=== PATIENT | male | born 1985 | race Caucasian/White ===

== ENCOUNTER 2018-03-16 14:28 | Emergency (ER) | payer SELFPAY ==
[2018-03-16 14:59] VITALS: BP 131/90
--- NOTE | 2018-03-16 15:05 | ED Physician Documentation ---
PD HPI UPPER EXT INJURY - Stated complaint Stated Complaint: RIGHT PINKY LAC - Chief complaint Chief Complaint: Laceration - History obtained from History obtained from: Patient - History of Present Illness Location: Other (Right-handed gentleman who is up-to-date on tetanus was assembling a barbecue grill today and cut the dorsum of the right pinky finger on a sharp edge.) Review of Systems Constitutional: reports: Reviewed and negative Cardiac: reports: Reviewed and negative Respiratory: reports: Reviewed and negative PD PAST MEDICAL HISTORY - Past Medical History Past Medical History: No - Past Surgical History Past Surgical History: Yes Ortho: Other - Present Medications Home Medications: Ambulatory Orders Medication Instructions Recorded Confirmed No Known Home Medications [No 03/16/18 03/16/18 Known Home Medications] - Allergies Allergies/Adverse Reactions: Allergies Allergy/AdvReac Type Severity Reaction Status Date / Time amoxicillin Allergy Unknown Verified 03/16/18 14:50 - Social History Does the pt smoke?: Yes Smoking Status: Current every day smoker Does the pt drink ETOH?: Yes Does the pt have substance abuse?: No - Immunizations Immunizations are current?: Yes PD ED PE NORMAL - Vitals Vital signs reviewed: Yes - General General: Alert and oriented X 3, No acute distress - Extremities Extremities: Other (There is a very shallow 1 cm laceration over the dorsal PIP of the right fifth finger, too shallow to affect deeper structures.) - Neuro Neuro: Alert and oriented X 3, Normal speech Results - Vitals Vitals: Vital Signs - 24 hr 03/16/18 14:32 Temperature 36.6 C Heart Rate 70 Respiratory 16 Rate Blood Pressure 131/90 H Oxygen O2 Source Room air Procedures - Laceration (location) R 5th finger Length in cm: 1 Wound type: Linear Neurovascular status: Sensory intact, Motor intact Wound Preparation: Irrigated copiously NS Skin layer closure: Dermabond Other: Tetanus UTD Complexity: Simple Departure - Departure Disposition: 01 Home, Self Care Condition: Good Record reviewed to determine appropriate education?: Yes Instructions: ED Laceration Ext Skin Glue Comments: Your blood pressure was elevated today on check into the emergency department. This does not mean that you have hypertension, it is a common phenomenon to come to the emergency department and have elevated blood pressure. I recommend that you see your primary care physician within the week to have it rechecked when you are feeling better.
== END 2018-03-16 15:15 | disposition home or self-care (01) ==
LOC: ED 14:28
DX: S61.216A Laceration without foreign body of right little finger without damage to nail, initial encounter (principal); W45.8XXA Other foreign body or object entering through skin, initial encounter; R03.0 Elevated blood-pressure reading, without diagnosis of hypertension; F17.200 Nicotine dependence, unspecified, uncomplicated
CPT/HCPCS: 12001; 99282; 99283

== ENCOUNTER 2020-02-10 08:00 | Outpatient (CLI) | payer BC ==
--- NOTE | 2020-02-10 17:10 | XRAY Report ---
Reason: DYSPNEA Procedure Date: 02/10/2020 Accession Number: [id number] / [id number] Procedure: WCP - Chest 2 View X-Ray CPT Code: 38193 Final Report FULL RESULT: EXAM: CHEST RADIOGRAPHY EXAM DATE: 02/10/2020 09:53 AM. CLINICAL HISTORY: DYSPNEA. COMPARISON: None. TECHNIQUE: PA x2, lateral views. FINDINGS: Lungs/Pleura: No focal opacities evident. No interstitial abnormality or pulmonary vascular congestion. No pleural effusion. No pneumothorax. Normal volumes. Mediastinum: Heart and mediastinal contours are unremarkable. Other: None. IMPRESSION: Normal 2-view chest radiography. RADIA
== END 2020-02-10 23:59 | disposition home or self-care (01) ==
LOC: DI.WCP 08:00
PROVIDERS: ATTEND Family Medicine
DX: R06.00 Dyspnea, unspecified (principal)
CPT/HCPCS: 71046

== ENCOUNTER 2021-05-16 08:00 | Outpatient (CLI) | payer BC, MEDICAID ==
--- NOTE | 2021-05-17 11:03 | XRAY Report ---
PROCEDURE: Chest 2 View X-Ray INDICATIONS: BILATERAL PNUEMONIA TECHNIQUE: 2 view(s) of the chest. COMPARISON: Similar studies 02/10/2020. FINDINGS: Surgical changes and devices: None. Lungs and pleura: No pleural effusions or pneumothorax. Lungs are clear. Mediastinum: Mediastinal contours are normal. Heart size is normal. Bones and chest wall: No suspicious bony abnormalities. Soft tissues appear unremarkable. IMPRESSION: Normal for age, source of current symptoms is not seen. Reviewed by: Morteza Sauceda MD on 05/17/2021 11:02 AM PDT Approved by: Morteza Sauceda MD on 05/17/2021 11:02 AM PDT Station ID: [id number]
== END 2021-05-16 23:59 | disposition home or self-care (01) ==
LOC: DI.S 08:00
PROVIDERS: ATTEND Emergency Medicine
DX: J18.9 Pneumonia, unspecified organism (principal)

== ENCOUNTER 2021-06-06 16:30 | Outpatient (CLI) | payer MEDICAID | END 2021-06-06 23:59 | disposition home or self-care (01) | LOC: LAB.R 16:30 | PROVIDERS: ATTEND Physician Assistant Medical | DX: R05 Cough (principal); Z20.822 Contact with and (suspected) exposure to COVID-19 ==

== ENCOUNTER 2021-06-30 13:17 | Outpatient (CLI) | payer MEDICAID ==
[2021-06-30] MEDS ORDERED: ALBUTEROL 1 PUFF INH STA (17:04)
== END 2021-06-30 13:18 | disposition home or self-care (01) ==
LOC: RT 13:17
PROVIDERS: ATTEND Registered Nurse
DX: R05 Cough (principal); R06.00 Dyspnea, unspecified
CPT/HCPCS: 94060; 94729

== ENCOUNTER 2021-08-25 07:10 | Outpatient (CLI) | payer MEDICAID | END 2021-08-25 23:59 | disposition home or self-care (01) | LOC: LAB 07:10 | PROVIDERS: ATTEND Physician Assistant Medical | DX: R05.9 Cough, unspecified (principal); Z20.822 Contact with and (suspected) exposure to COVID-19 ==

== ENCOUNTER 2021-08-25 11:57 | Outpatient (CLI) | payer MEDICAID ==
--- NOTE | 2021-08-25 13:35 | XRAY Report ---
PROCEDURE: Sinus Complete INDICATIONS: COUGH TECHNIQUE: 4 views of the sinuses were acquired. COMPARISON: None FINDINGS: Sinuses: The visualized sinuses demonstrate no air-fluid levels or mucosal thickening. The visualiz ed mastoids also appear clear. Bones: No suspicious bony lesions. Nasal septum is midline. There is a compression sideplate repai r of the left orbital floor with additional maxillary medial side plates as well. IMPRESSION: Paranasal sinuses are clear. Maxillofacial repair hardware intact Reviewed by: Hemanth Murray MD on 08/25/2021 12:34 PM AKROSEMARIE Approved by: Hemanth Murray MD on 08/25/2021 12:34 PM AKDT Station ID: [id number]
== END 2021-08-25 11:58 ==
LOC: DI.S 11:57
PROVIDERS: ATTEND Physician Assistant Medical
DX: R05.9 Cough, unspecified (principal)

== ENCOUNTER 2021-08-26 15:23 | Emergency (ER) | payer MEDICAID ==
--- NOTE | 2021-08-26 16:08 | XRAY Report ---
PROCEDURE: Chest 1 View X-Ray INDICATIONS: chest pain TECHNIQUE: One view of the chest was acquired. COMPARISON: Chest x-ray 05/16/2021 FINDINGS: Surgical changes and devices: None. Lungs and pleura: No pleural effusions or pneumothorax. Lungs are clear. Mediastinum: Mediastinal contours appear normal. Heart size is normal. Bones and chest wall: No suspicious bony lesions. Overlying soft tissues appear unremarkable. IMPRESSION: No acute pulmonary process. Reviewed by: Holly Rawls MD on 08/26/2021 4:07 PM PDT Approved by: Holly Rawls MD on 08/26/2021 4:07 PM PDT Station ID: [id number]
[2021-08-26] MEDS ORDERED: ALBUTEROL NEB 2.5 MG/3 ML INH STA (17:00)
[2021-08-26] MEDS ORDERED: IPRATROPIUM 0.2 MG/ML NEB INH STA (17:01)
--- NOTE | 2021-08-26 17:02 | ED Physician Documentation ---
History of Present Illness - Stated complaint Stated Complaint: SOA,COUGH - Chief complaint Chief Complaint: Resp - Additonal information Additional information: 36-year-old male presents emergency department for evaluation of worsening cough that began 4 months ago. He states he has been seen a number of times at urgent care and walk-in clinic. He has had multiple courses of antibiotics has been told that he has bad allergies. He is taking montelukast and Zyrtec daily. He is also doing a daily Flonase nasal spray. He is using albuterol daily and is now using it every 4-6 hours. He is having severe coughing spells. Typically they are dry but most recently this morning he brought up a lot of blood-tinged yellow sputum. He feels persistently short of air. He did have spirometry completed in June that was not consistent with reactive airway disease yet he remains wheezy. He has been screened for COVID-19 multiple times most recently yesterday and the pending's green is not yet resulted. However he is fully vaccinated for COVID- 19. Review of Systems Constitutional: denies: Fever, Chills Eyes: reports: Reviewed and negative Ears: reports: Reviewed and negative Nose: reports: Rhinorrhea / runny nose, Congestion Throat: reports: Sore throat Cardiac: denies: Chest pain / pressure, Palpitations, Pedal edema, Calf pain Respiratory: reports: Dyspnea, Cough, Hemoptysis, Wheezing GI: reports: Reviewed and negative : reports: Reviewed and negative PD PAST MEDICAL HISTORY - Past Surgical History Past Surgical History: Yes Ortho: Other - Present Medications Home Medications: Ambulatory Orders Medication Instructions Recorded Confirmed Azithromycin [Zithromax] 0 mg PO DAILY #6 tablet 08/26/21 predniSONE [Deltasone] 40 mg PO DAILY 5 Days #10 tablet 08/26/21 - Allergies Allergies/Adverse Reactions: Allergies Allergy/AdvReac Type Severity Reaction Status Date / Time amoxicillin Allergy Unknown Verified 08/26/21 15:28 - Social History Does the pt smoke?: Yes Smoking Status: Current every day smoker Does the pt drink ETOH?: Yes Does the pt have substance abuse?: No - Immunizations Immunizations are current?: Yes PD ED PE EXPANDED - General General: Alert, No acute distress - Neck Neck: Supple w/out meningeal sx. No: Adenopathy - Cardiac Cardiac: Regular Rate, Radial strong equal, Cap refill < 2 sec - Respiratory Respiratory: Labored, Other (Global generalized wheeze. Mild tachypnea. No retractions.) - Abdomen Abdomen: Normal Bowel sounds. No: Tender to palpation - Neuro Neuro: Alert and Oriented X 3, CNII-XII intact - GCS Eye Opening: Spontaneous Motor: Obeys Commands Verbal: Oriented Total: 15 Results - Vitals Vitals: Vital Signs - 24 hr 08/26/21 08/26/21 08/26/21 15:29 17:15 17:32 Temperature 37.1 C 36.8 C Heart Rate 88 85 83 Respiratory 26 H 20 18 Rate Blood Pressure 107/71 117/65 O2 Saturation 98 98 Oxygen O2 Source Room air - Labs Labs: Laboratory Tests 08/26/21 08/26/21 17:15 17:15 WBC 11.7 H RBC 5.40 Hgb 15.8 Hct 47.2 MCV 87.4 MCH 29.3 MCHC 33.5 RDW 12.8 Plt Count 365 MPV 9.1 Neut # (Auto) 9.3 H Lymph # (Auto) 1.0 L [place] # (Auto) 0.7 Eos # (Auto) 0.7 Baso # (Auto) 0.1 Absolute Nucleated RBC 0.00 Nucleated RBC % 0.0 Sodium 140 Potassium 4.1 Chloride 103 Carbon Dioxide 28 Anion Gap 9.0 BUN 21 H Creatinine 1.1 Estimated GFR (MDRD) 76 L Glucose 100 Calcium 9.7 Total Bilirubin 0.8 AST 19 ALT 24 Alkaline Phosphatase 74 Total Protein 7.9 Albumin 4.7 Globulin 3.2 Albumin/Globulin Ratio 1.5 Lipase 34 - Rads (name of study) CT chest Radiology: Final report received (No pneumonia focal consolidation pleural effusion or finding of pulmonary embolus.) PD MEDICAL DECISION MAKING - ED course ED course: 36-year-old male presents the emergency department for evaluation of a cough that has been ongoing and persistent now for nearly 4 months. He has recurrent nasal congestion and drainage. But he also has a persistent cough that is now productive. He has been wheezy. He has had 2 courses of antibiotics and finished 1 course of steroids however that was a number of months ago. He had unremarkable spirometry in early June. He has been referred to an residential care facility manager but that is pending. He takes mom took last Zyrtec and a nasal steroid daily. He arrives here quite frustrated with the persistence of the cough that he feels is now inhibiting his ability to sleep at night and to be active during the day. - Screening chest x-ray is unremarkable for focal consolidation. He was not hypoxic or tachypneic however on cardiopulmonary auscultation he did have a persistent wheeze in all his lung weller. This markedly improved after receiving albuterol followed by Atrovent nebulization. I am ordering a home nebulizing machine To administer home bronchodilators to treat his reactive airway disease. I am also going to prescribe a 5-day burst of steroids as well as azithromycin for a suspected mild bronchitis. - Given duration of symptoms and reported hemoptysis a CT of the chest was completed with no adventitious findings of pneumonia or pulmonary embolus - I do feel that he would benefit from continued referral to meeting specialist. He should continue the montelukast, Flonase and Zyrtec. If the nebulizer that I am prescribing as well as the steroids and antibiotic do not improve symptoms he would likely also benefit from a referral to a garment looper. - We did discuss that often a cause of recurrent cough and wheeze can be silent acid reflux at night and I have advised him to avoid eating or drinking 2 to 3 hours before bedtime, consider taking a daily PPI and sleep upright on 2-3 pillows. - emergent return precautions otherwise discussed Departure - Departure Disposition: 01 Home, Self Care Clinical Impression: Reactive airway disease with wheezing Qualifiers: Asthma severity: moderate Asthma persistence: persistent Asthma complication type: uncomplicated Qualified Code(s): J45.40 - Moderate persistent asthma, uncomplicated Condition: Stable Record reviewed to determine appropriate education?: Yes Instructions: ED Reactive Airway Disease Follow-Up: Natasha Mims ARNP [Primary Care Provider] - Prescriptions: predniSONE [Deltasone] 40 mg PO DAILY 5 Days #10 tablet Azithromycin [Zithromax] 0 mg PO DAILY #6 tablet Comments: Tomi you were seen in the emergency department today for a cough that has persisted for more than 4 months. You were also noted to be extensively wheezy in all your lung weller. As we discussed at the bedside I suspected that you have reactive airway disease. This may be due to allergies or other environmental concerns. I do recommend that you continue to follow-up with the residential care facility manager that you have been referred to. The x-ray of your chest was normal today. We did do a CT of your chest that also showed no worrisome findings. Your labs were normal. We gave you albuterol and the nebulized form today and you did find that you had improved work of breathing. I have prescribed a nebulizer and medication that should be delivered to you through [facility]. Please call them at [phone] to help arrange this. I am prescribing an antibiotic called azithromycin that can help with mild bronchitis as well as acute asthma exacerbations. Please fill this at the [facility]. I would also like you to do another 5-day course of prednisone. Continue the montelukast, the Zyrtec as well as the nasal steroid. Another common cause of persistent cough and wheeze can be silent acid reflux at night. You may find some benefit from taking a daily acid reducing medication, avoiding eating or drinking 2 hours before bedtime as well as sleeping upright on 2-3 pillows. It is important that you discuss this ED visit with your primary care provider. If these measures are not improving your symptoms you may also benefit from referral to a garment looper or lung doctor.
[2021-08-26] MEDS ORDERED: IOVERSOL 320 100 ML VIAL IVP ONE ×2 (17:08→18:35)
[2021-08-26 17:29] LABS: BASOPHILS # (AUTO) 0.1 10^3/uL (0.0-0.1); BASOPHILS % (AUTO) 0.5 %; EOSINOPHILS # (AUTO) 0.7 10^3/uL (0.0-0.7); EOSINOPHILS % (AUTO) 6.3 %; HCT - HEMATOCRIT 47.2 % (42.0-52.0); HGB - HEMOGLOBIN 15.8 g/dL (14.0-18.0); LYMPHOCYTES % (AUTO) 8.2 %; MEAN CORPUSCULAR HEMOGLOBIN 29.3 pg (27.0-31.0); MEAN CORPUSCULAR HGB CONC 33.5 g/dL (32.0-36.0); MEAN CORPUSCULAR VOLUME 87.4 fL (80.0-94.0); MEAN PLATELET VOLUME 9.1 fL (7.4-11.4); MONOCYTES # (AUTO) 0.7 10^3/uL (0.0-1.0); NEUTROPHILS # (AUTO) 9.3 10^3/uL (1.5-6.6); NEUTROPHILS % (AUTO) 78.7 %; PLT - PLATELET COUNT 365 10^3/uL (130-450); RED CELL DISTRIBUTION WIDTH 12.8 % (12.0-15.0); WHITE BLOOD COUNT 11.7 x10^3/uL (4.8-10.8)
[2021-08-26 17:43] LABS: ALBUMIN 4.7 g/dL (3.2-5.5); ALBUMIN/GLOBULIN RATIO 1.5 (1.0-2.2); BILIRUBIN,TOTAL 0.8 mg/dL (0.2-1.0); CALCIUM 9.7 mg/dL (8.5-10.3); CREATININE 1.1 mg/dL (0.6-1.2); POTASSIUM 4.1 mmol/L (3.5-5.0); TOTAL PROTEIN 7.9 g/dL (6.7-8.2)
--- NOTE | 2021-08-26 18:53 | CT Report ---
PROCEDURE: ANGIO CHEST W/WO INDICATIONS: hemoptysis; cough X 4 months CONTRAST: IV CONTRAST: Optiray 320 ml: 80 PO CONTRAST: *NO PO CONTRAST TECHNIQUE: After the administration of intravenous contrast, 2 mm axial images were acquired from the pulmonary apices to the posterior costophrenic angles during the arterial phase. In addition, 1 mm lung kernel and 5 mm soft tissue kernel reconstructions were performed. 3-dimensional coronal oblique maximum int ensity projection (MIP) reformats, 8 mm axial MIP, and 5 mm coronal and sagittal MPR reformats were t hen performed through the thorax. For radiation dose reduction, the following was used: automated exp osure control, adjustment of mA and/or kV according to patient size. COMPARISON: Chest x-ray 08/26/2021 FINDINGS: Image quality: Excellent. Pulmonary arteries: Pulmonary arteries are normal in size, and demonstrate no intraluminal filling d efects to suggest central pulmonary embolism. Lungs and pleura: Lungs are clear. No pleural effusions or pneumothorax. Central and peripheral ai rways are patent. Mediastinum: Heart size is normal, without pericardial effusion. No mediastinal or hilar adenopathy . Thoracic aorta is normal in caliber and enhancement. Esophagus is normal in caliber, with mild hi atal hernia. Bones and chest wall: No suspicious bony lesions. Ribs and thoracic spine appear intact throughout. No axillary or supraclavicular adenopathy. The thyroid is normal in size and there are no incident al findings. Abdomen: Visualized upper abdominal solid organs appear normal in the early arterial phase of enhanc ement. IMPRESSION: 1. Lungs are clear. No pulmonary embolism. CLINICAL RECOMMENDATION STATEMENTS: In patients <35 years with an ITN detected on CT, MRI, or extrathyroidal ultrasound, the Committee re commends further evaluation with dedicated thyroid ultrasound if the nodule is "e1 cm and has no susp icious imaging features, and if the patient has normal life expectancy. In patients "e35 years with an ITN detected on CT, MRI, or extrathyroidal ultrasound, the Committee r ecommends further evaluation with dedicated thyroid ultrasound if the nodule is "e1.5 cm and has no s uspicious imaging features, and if the patient has normal life expectancy. (ACR, 2014) Reviewed by: Holly Rawls MD on 08/26/2021 6:52 PM PDT Approved by: Holly Rawls MD on 08/26/2021 6:52 PM PDT Station ID: [id number]
[2021-08-26 19:16] VITALS: BP 107/74
== END 2021-08-26 19:30 | disposition home or self-care (01) ==
LOC: ED 15:23
DX: J45.40 Moderate persistent asthma, uncomplicated (principal); F17.200 Nicotine dependence, unspecified, uncomplicated
CPT/HCPCS: 36415; 71045; 71275; 80053; 83690; 85025; 94640; 99283; 99284; A9270; Q9967

== ENCOUNTER 2021-09-08 08:00 | Outpatient (CLI) | payer MEDICAID | END 2021-09-08 23:59 | disposition home or self-care (01) | LOC: LAB.S 08:00 | PROVIDERS: ATTEND Registered Nurse | DX: J45.909 Unspecified asthma, uncomplicated (principal) | CPT/HCPCS: 81599; 87070; 87205 ==

== ENCOUNTER 2022-07-31 07:32 | Emergency (ER) | payer MEDICAID, OTHER ==
--- NOTE | 2022-07-31 07:43 | ED Physician Documentation ---
PD HPI URI - Stated complaint Stated Complaint: SOA - Chief complaint Chief Complaint: Resp - History obtained from History obtained from: Patient - History of Present Illness Timing - onset: How many days ago (2) Timing duration: Days (2) Timing details: Gradual onset, Still present Associated symptoms: Ear pain (started last night), Nasal congestion, Dry cough, Other (wheezing). No: Fever, Chills, Sore throat Contributing factors: Unimmunized, COPD / asthma. No: Sick contact, Travel Worsened by: Activity Similar symptoms before: Has not had sx before Recently seen: Not recently seen Review of Systems Constitutional: reports: Myalgias. denies: Fever Ears: reports: Ear pain (right) Nose: reports: Rhinorrhea / runny nose, Congestion Throat: denies: Sore throat Cardiac: denies: Chest pain / pressure Respiratory: reports: Dyspnea, Cough, Wheezing GI: denies: Abdominal Pain, Nausea, Vomiting, Diarrhea Skin: denies: Rash, Lesions Neurologic: denies: Altered mental status, Headache PD PAST MEDICAL HISTORY - Past Medical History Cardiovascular: None Respiratory: Asthma Neuro: None Endocrine/Autoimmune: None - Past Surgical History Past Surgical History: Yes Ortho: Other - Present Medications Home Medications: Ambulatory Orders Medication Instructions Recorded Confirmed Albuterol 2.5 mg INH Q4H PRN #30 ml 07/31/22 Benzonatate [Tessalon] 100 mg PO QID PRN #40 cap 07/31/22 Ipratropium [Atrovent] 0.5 mg INH BID 30 Days #150 ml 07/31/22 cephALEXin [Keflex] 500 mg PO TID 6 Days #18 cap 07/31/22 dexAMETHasone [Decadron] 4 mg PO DAILY #5 tablet 07/31/22 - Allergies Allergies/Adverse Reactions: Allergies Allergy/AdvReac Type Severity Reaction Status Date / Time amoxicillin Allergy Unknown Verified 07/31/22 07:41 - Social History Does the pt smoke?: Yes Smoking Status: Current every day smoker Does the pt drink ETOH?: Yes Does the pt have substance abuse?: No - Immunizations Immunizations are current?: Yes PD ED PE NORMAL - Vitals Vital signs reviewed: Yes - General General: Alert and oriented X 3, No acute distress, Well developed/nourished - HEENT HEENT: Pharynx benign. No: Ears normal (left is normal. right has TM redness and bulging. No perforation. ) - Neck Neck: Supple, no meningeal sign, No adenopathy - Cardiac Cardiac: RRR (mild tachycardia), No murmur - Respiratory Respiratory: No respiratory distress. No: Clear bilaterally (diffuse mild wheezing. No coarse sounds. ) - Abdomen Abdomen: Soft, Non tender - Derm Derm: Normal color, Warm and dry - Extremities Extremities: No edema - Neuro Neuro: Alert and oriented X 3, No motor deficit, Normal speech Results - Vitals Vitals: Oxygen O2 Source Room air - Labs Labs: Laboratory Tests 07/31/22 08:40 Nasal Influenza B PCR NOT DETECTED Nasal Influenza A PCR NOT DETECTED Nasal RSV (PCR) NOT DETECTED Nasal SARS-CoV-2 (PCR) NOT DETECTED PD MEDICAL DECISION MAKING - ED course Complexity details: considered differential (seems viral URI with exac asthma and now with right OM as well. ), d/w patient Departure - Departure Disposition: 01 Home, Self Care Clinical Impression: Upper respiratory infection Qualifiers: URI type: unspecified URI Qualified Code(s): J06.9 - Acute upper respiratory infection, unspecified Exacerbation of RAD (reactive airway disease) Qualifiers: Asthma severity: moderate Asthma persistence: persistent Qualified Code(s): J45.41 - Moderate persistent asthma with (acute) exacerbation Otitis media Qualifiers: Otitis media type: suppurative Chronicity: acute Laterality: right Recurrence: non-recurrent Spontaneous tympanic membrane rupture: without spontaneous rupture Qualified Code(s): H66.001 - Acute suppurative otitis media without spontaneous rupture of ear drum, right ear Condition: Stable Record reviewed to determine appropriate education?: Yes Instructions: ED Reactive Airway Disease, ED Otitis Media Acute Adult Prescriptions: Albuterol 2.5 mg INH Q4H PRN #30 ml PRN Reason: Wheezing Ipratropium [Atrovent] 0.5 mg INH BID 30 Days #150 ml dexAMETHasone [Decadron] 4 mg PO DAILY #5 tablet cephALEXin [Keflex] 500 mg PO TID 6 Days #18 cap Benzonatate [Tessalon] 100 mg PO QID PRN #40 cap PRN Reason: Cough Comments: It sounds likely you have a viral illness can hounding your usual breathing problems. The respiratory test we did should result later today and is looking for COVID, flu, RSV. There has been some RSV going around lately which will cause a lot of wheezing even without underlying reactive airway disease. For your symptoms, I would have you continue with your albuterol either inhaler or could use nebulizer. To that you could add ipratropium/Atrovent 4 times daily initially for the first few days and then twice a day continued. See if that works better overall. Benzonatate/Tessalon if needed for cough. Presuming a inflammatory response to a current infection, I believe steroids would help quite a bit to do minutes your symptoms back to baseline. Decadron daily for 5 more days. Your right ear does look like an ear infection and that can often enough have a bacterial cause so cephalexin 3 times daily for 6 days. I transmitted these prescriptions to the [facility] in [place]. I would anticipate improvement over the next few days. Return if worsening despite these. Discharge Date/Time: 07/31/22 09:17
--- OUTSIDE RECORDS SUMMARY | 2022-07-31 08:01 | EXTERNAL MEDICAL SUMMARY RPT | Continuity of Care Document ---
:1985 Author Organization [facility] Address [address] [place] [address] Phone Allergies No information. Encounters No information. Functional Status No information. Immunizations No information. Medications date description facility [id number] fluticasone propionate [facility] [phone] clonidine hcl [facility] [phone] fluticasone propionate [facility] [phone] cetirizine [facility] [phone] clonidine hcl [facility] Problems No information. Procedures No information. Results/Labs No information. Social History No information. Vital Signs No information.
[2022-07-31] MEDS ORDERED: CHERRY SYRUP 10 ML UDC PO ONE (08:09)
[2022-07-31] MEDS ORDERED: DEXAMETHASONE 10 MG/ML VIAL PO STA (08:09)
[2022-07-31] MEDS ORDERED: IPRATROPIUM/ALBUTEROL 3 ML NEB INH STA (08:09)
[2022-07-31] MEDS ORDERED: ALBUTEROL NEB 2.5 MG/3 ML INH STA (08:44)
[2022-07-31] MEDS ORDERED: cephALEXin 250 MG CAPSULE PO STA (08:44)
[2022-07-31 09:17] VITALS: BP 127/71
[2022-07-31 09:40] LABS: INFLUENZA A- RESP PCR PANEL NOT DETECTED; INFLUENZA B - RESP PCR PANEL NOT DETECTED; RSV- RESP PCR PANEL NOT DETECTED; SARS-CoV-2 -RESP PCR PANEL NOT DETECTED
== END 2022-07-31 09:17 | disposition home or self-care (01) ==
LOC: ED 07:32
DX: J06.9 Acute upper respiratory infection, unspecified (principal); J45.41 Moderate persistent asthma with (acute) exacerbation; H66.001 Acute suppurative otitis media without spontaneous rupture of ear drum, right ear; F17.200 Nicotine dependence, unspecified, uncomplicated; Z20.822 Contact with and (suspected) exposure to COVID-19
CPT/HCPCS: 87637; 94640; 99284; A9270

== ENCOUNTER 2022-09-19 16:32 | Outpatient (CLI) | payer OTHER ==
[2022-09-19 16:48] LABS: BASOPHILS # (AUTO) 0.1 10^3/uL (0.0-0.1); BASOPHILS % (AUTO) 0.7 %; EOSINOPHILS # (AUTO) 0.4 10^3/uL (0.0-0.7); EOSINOPHILS % (AUTO) 4.8 %; HCT - HEMATOCRIT 43.1 % (42.0-52.0); HGB - HEMOGLOBIN 14.5 g/dL (14.0-18.0); LYMPHOCYTES # (AUTO) 3.1 10^3/uL (1.5-3.5); LYMPHOCYTES % (AUTO) 33.3 %; MEAN CORPUSCULAR HEMOGLOBIN 29.1 pg (27.0-31.0); MEAN CORPUSCULAR HGB CONC 33.6 g/dL (32.0-36.0); MEAN CORPUSCULAR VOLUME 86.5 fL (80.0-94.0); MEAN PLATELET VOLUME 9.2 fL (7.4-11.4); MONOCYTES # (AUTO) 0.6 10^3/uL (0.0-1.0); MONOCYTES % (AUTO) 6.2 %; NEUTROPHILS % (AUTO) 54.9 %; PLT - PLATELET COUNT 342 10^3/uL (130-450); RED BLOOD COUNT 4.98 10^6/uL (4.70-6.10); RED CELL DISTRIBUTION WIDTH 12.5 % (12.0-15.0); WHITE BLOOD COUNT 9.2 x10^3/uL (4.8-10.8)
[2022-09-19 17:08] LABS: ALBUMIN 4.6 g/dL (3.2-5.5); ALBUMIN/GLOBULIN RATIO 1.5 (1.0-2.2); ALKALINE PHOSPHATASE 80 IU/L (42-121); ALT ALANINE AMINOTRANSFERASE 41 IU/L (10-60); AST ASPARTATE AMINOTRANSFERASE 32 IU/L (10-42); BILIRUBIN,TOTAL 0.2 mg/dL (0.2-1.0); BUN - BLOOD UREA NITROGEN 28 mg/dL (6-20); CALCIUM 9.8 mg/dL (8.5-10.3); CARBON DIOXIDE - CO2 26 mmol/L (21-32); CHLORIDE 103 mmol/L (101-111); CHOLESTEROL 190 mg/dL; CREATININE 0.9 mg/dL (0.6-1.2); GFR - MDRD 95 (>89); GLUCOSE 93 mg/dL (70-100); HDL CHOLESTEROL 48 mg/dL; LDL CHOLESTEROL,CALCULATED 122 mg/dL; LDL/HDL RATIO 2.5 (<3.6); POTASSIUM 3.8 mmol/L (3.5-5.0); SODIUM 137 mmol/L (135-145); TOTAL PROTEIN 7.6 g/dL (6.7-8.2); TRIGLYCERIDES 98 mg/dL; VLDL CHOLESTEROL 20 mg/dL
[2022-09-19 17:19] LABS: THYROID STIMULATING HORMONE 2.04 uIU/mL (0.34-5.60)
== END 2022-09-19 16:33 | disposition home or self-care (01) ==
LOC: LAB 16:32
PROVIDERS: ATTEND Registered Nurse
DX: R53.83 Other fatigue (principal); Z79.899 Other long term (current) drug therapy; J45.909 Unspecified asthma, uncomplicated
CPT/HCPCS: 36415; 80053; 80061; 83721; 84153; 84403; 84443; 85025

== ENCOUNTER 2022-12-11 07:00 | Outpatient (CLI) | payer OTHER ==
[2022-12-11 21:39] LABS: CHLAMYDIA TRACHOMATIS DNA NEGATIVE (NEGATIVE); NEISSERIA GONORRHOEAE DNA NEGATIVE (NEGATIVE)
== END 2022-12-11 23:59 | disposition home or self-care (01) ==
LOC: LAB.S 07:00
PROVIDERS: ATTEND Nurse Practitioner
DX: Z11.3 Encounter for screening for infections with a predominantly sexual mode of transmission (principal)
CPT/HCPCS: 87491; 87591; 87661

== ENCOUNTER 2022-12-11 08:39 | Outpatient (CLI) | payer OTHER ==
[2022-12-12 04:08] LABS: HCV AB <0.1 s/co ratio (0.0-0.9); HEPATITIS B SURFACE AB QUANT <3.1 mIU/mL (Immunity>9.9); HIV SCREEN 4TH GENERATION Non Reactive (Non Reactive)
[2022-12-12 06:10] LABS: HSV 1 IGG TYPE SPEC 7.05 index (0.00-0.90); HSV 2 IGG TYPE SPEC 7.31 index (0.00-0.90)
== END 2022-12-11 08:40 | disposition home or self-care (01) ==
LOC: LAB.S 08:39
PROVIDERS: ATTEND Nurse Practitioner
DX: Z11.3 Encounter for screening for infections with a predominantly sexual mode of transmission (principal)
CPT/HCPCS: 36415; 86317; 86695; 86696; 86704; 86803; 87389

== ENCOUNTER 2023-01-31 07:29 | Outpatient (CLI) | payer OTHER ==
[2023-01-31 14:51] LABS: BASOPHILS # (AUTO) 0.1 10^3/uL (0.0-0.1); BASOPHILS % (AUTO) 0.7 %; EOSINOPHILS # (AUTO) 0.4 10^3/uL (0.0-0.7); EOSINOPHILS % (AUTO) 6.5 %; HCT - HEMATOCRIT 48.6 % (42.0-52.0); HGB - HEMOGLOBIN 16.1 g/dL (14.0-18.0); LYMPHOCYTES # (AUTO) 2.2 10^3/uL (1.5-3.5); LYMPHOCYTES % (AUTO) 32.1 %; MEAN CORPUSCULAR HEMOGLOBIN 28.7 pg (27.0-31.0); MEAN CORPUSCULAR HGB CONC 33.1 g/dL (32.0-36.0); MEAN CORPUSCULAR VOLUME 86.6 fL (80.0-94.0); MEAN PLATELET VOLUME 9.8 fL (7.4-11.4); MONOCYTES # (AUTO) 0.6 10^3/uL (0.0-1.0); MONOCYTES % (AUTO) 8.5 %; NEUTROPHILS # (AUTO) 3.5 10^3/uL (1.5-6.6); NEUTROPHILS % (AUTO) 52.1 %; PLT - PLATELET COUNT 399 10^3/uL (130-450); RED BLOOD COUNT 5.61 10^6/uL (4.70-6.10); RED CELL DISTRIBUTION WIDTH 12.8 % (12.0-15.0); WHITE BLOOD COUNT 6.8 x10^3/uL (4.8-10.8)
[2023-01-31 15:20] LABS: THYROID STIMULATING HORMONE 1.32 uIU/mL (0.34-5.60)
[2023-01-31 15:29] LABS: ALBUMIN/GLOBULIN RATIO 1.4 (1.0-2.2); ALKALINE PHOSPHATASE 59 IU/L (42-121); ALT ALANINE AMINOTRANSFERASE 25 IU/L (10-60); AST ASPARTATE AMINOTRANSFERASE 20 IU/L (10-42); BILIRUBIN,TOTAL 0.7 mg/dL (0.2-1.0); BUN - BLOOD UREA NITROGEN 16 mg/dL (6-20); CALCIUM 9.3 mg/dL (8.5-10.3); CARBON DIOXIDE - CO2 28 mmol/L (21-32); CHLORIDE 107 mmol/L (101-111); CHOL/HDL RATIO 4.4 (<5.0); CHOLESTEROL 188 mg/dL; CREATININE 0.9 mg/dL (0.6-1.2); GFR - MDRD 95 (>89); GLUCOSE 102 mg/dL (70-100); HDL CHOLESTEROL 43 mg/dL; LDL CHOLESTEROL,CALCULATED 132 mg/dL; LDL/HDL RATIO 3.1 (<3.6); POTASSIUM 4.4 mmol/L (3.5-5.0); SODIUM 139 mmol/L (135-145); TOTAL PROTEIN 6.9 g/dL (6.7-8.2); TRIGLYCERIDES 64 mg/dL; VLDL CHOLESTEROL 13 mg/dL
== END 2023-01-31 07:30 | disposition home or self-care (01) ==
LOC: LAB.S 07:29
PROVIDERS: ATTEND Registered Nurse
DX: Z79.899 Other long term (current) drug therapy (principal); Z13.220 Encounter for screening for lipoid disorders; Z13.29 Encounter for screening for other suspected endocrine disorder
CPT/HCPCS: 36415; 80053; 80061; 83721; 84403; 84443; 85025

== ENCOUNTER 2023-07-24 13:15 | Outpatient (CLI) | payer OTHER ==
--- NOTE | 2023-07-24 18:12 | XRAY Report ---
PROCEDURE: Cervical Spine Comp w/Flex/Ext INDICATIONS: CERVICALGIA,NUMBNESS, HAND TECHNIQUE: 7 views of the cervical spine were acquired. COMPARISON: None. FINDINGS: Bones: No fractures or dislocations to the T1 level. No suspicious bony lesions. There is normal r garrett of motion between flexion and extension, with preserved normal bony alignment. Soft tissues: Prevertebral soft tissues are normal in thickness. IMPRESSION: Normal cervical spine radiographs. No evidence of segmental instability Reviewed by: Hemanth Murray MD on 07/24/2023 5:11 PM DAVID Approved by: Hemanth Murray MD on 07/24/2023 5:11 PM AKROSEMARIE Station ID: [id number]
== END 2023-07-24 13:16 | disposition home or self-care (01) ==
LOC: DI.S 13:15
PROVIDERS: ATTEND Registered Nurse
DX: M54.2 Cervicalgia (principal); R20.2 Paresthesia of skin

== ENCOUNTER 2023-12-29 09:58 | Outpatient (CLI) | payer OTHER ==
[2023-12-29 14:39] LABS: BASOPHILS # (AUTO) 0.1 10^3/uL (0.0-0.1); BASOPHILS % (AUTO) 0.9 %; EOSINOPHILS # (AUTO) 0.3 10^3/uL (0.0-0.7); EOSINOPHILS % (AUTO) 4.4 %; HCT - HEMATOCRIT 51.3 % (42.0-52.0); HGB - HEMOGLOBIN 17.1 g/dL (14.0-18.0); LYMPHOCYTES # (AUTO) 2.5 10^3/uL (1.5-3.5); LYMPHOCYTES % (AUTO) 36.3 %; MEAN CORPUSCULAR HEMOGLOBIN 28.6 pg (27.0-31.0); MEAN CORPUSCULAR HGB CONC 33.3 g/dL (32.0-36.0); MEAN CORPUSCULAR VOLUME 85.9 fL (80.0-94.0); MONOCYTES # (AUTO) 0.6 10^3/uL (0.0-1.0); MONOCYTES % (AUTO) 9.2 %; NEUTROPHILS # (AUTO) 3.4 10^3/uL (1.5-6.6); NEUTROPHILS % (AUTO) 48.9 %; PLT - PLATELET COUNT 331 10^3/uL (130-450); RED BLOOD COUNT 5.97 10^6/uL (4.70-6.10); RED CELL DISTRIBUTION WIDTH 12.6 % (12.0-15.0); WHITE BLOOD COUNT 6.9 x10^3/uL (4.8-10.8)
[2023-12-29 15:32] LABS: ALBUMIN 4.5 g/dL (3.2-5.5); ALBUMIN/GLOBULIN RATIO 1.8 (1.0-2.2); ALKALINE PHOSPHATASE 64 IU/L (42-121); ALT ALANINE AMINOTRANSFERASE 36 IU/L (10-60); AST ASPARTATE AMINOTRANSFERASE 22 IU/L (10-42); BILIRUBIN,TOTAL 0.8 mg/dL (0.2-1.0); BUN - BLOOD UREA NITROGEN 15 mg/dL (6-20); CALCIUM 9.5 mg/dL (8.5-10.3); CARBON DIOXIDE - CO2 30 mmol/L (21-32); CHLORIDE 104 mmol/L (101-111); CHOL/HDL RATIO 4.7 (<5.0); CHOLESTEROL 189 mg/dL; GFR - MDRD 84 (>89); GLUCOSE 96 mg/dL (74-104); HDL CHOLESTEROL 40 mg/dL; LDL CHOLESTEROL,CALCULATED 118 mg/dL; POTASSIUM 4.4 mmol/L (3.5-4.5); SODIUM 137 mmol/L (135-145); TRIGLYCERIDES 157 mg/dL (48-352); VLDL CHOLESTEROL 31 mg/dL
== END 2023-12-29 09:59 | disposition home or self-care (01) ==
LOC: LAB.S 09:58
PROVIDERS: ATTEND Registered Nurse
DX: E29.1 Testicular hypofunction (principal); Z13.228 Encounter for screening for other metabolic disorders; Z13.220 Encounter for screening for lipoid disorders; Z13.0 Encounter for screening for diseases of the blood and blood-forming organs and certain disorders involving the immune mechanism
CPT/HCPCS: 36415; 80053; 80061; 83721; 84403; 85025

== ENCOUNTER 2024-05-11 17:27 | Emergency (ER) | payer MEDICAID, OTHER ==
--- NOTE | 2024-05-11 18:07 | XRAY Report ---
PROCEDURE: Chest 2V INDICATIONS: COUGHING/FEVER TECHNIQUE: 2 views of the chest were acquired. COMPARISON: None. FINDINGS: Surgical changes and devices: None. Lungs and pleura: No pleural effusions or pneumothorax. Ill-defined airspace opacity in right upper lung field is seen extending to right hilar region. Mediastinum: Mediastinal contours appear normal. Heart size is normal. Bones and chest wall: No suspicious bony lesions. Overlying soft tissues appear unremarkable. IMPRESSION: Finding is suggestive of an ill-defined right upper lobe infiltrate. No pleural effusion or pneumotho rax. Reviewed by: Dimas Casillas MD on 05/11/2024 6:06 PM PDT Approved by: Dimas Casillas MD on 05/11/2024 6:06 PM PDT Station ID: [id number]
--- NOTE | 2024-05-11 18:40 | ED Physician Documentation ---
History of Present Illness - Stated complaint Stated Complaint: COUGH/FEVER/AVENDAÑO - Chief complaint Chief Complaint: Resp - Additonal information Additional information: 39-year-old male with history of lung issues after getting the COVID-vaccine presents emergency department for fevers, chills, cough, shortness of breath. Patient says that he has been ill now for about 5 days that started as an upper respiratory infection and he feels like it slowly moved towards his lungs. Patient says with any sort of activity he gets quite winded with nausea vomiting and severe headache. He is attempted to take Tylenol ibuprofen with little to no relief. PD PAST MEDICAL HISTORY - Past Medical History Past Medical History: Yes Cardiovascular: None Respiratory: Asthma Neuro: None Endocrine/Autoimmune: None GI: GERD : None HEENT: None Psych: None Musculoskeletal: None Derm: None - Past Surgical History Past Surgical History: Yes Ortho: Other - Present Medications Home Medications: Ambulatory Orders Medication Instructions Recorded Confirmed Albuterol Sulf [Ventolin Hfa 1 - 2 puffs INH Q4HR PRN #1 each 05/11/24 Inhaler] Amox/Clav 875/125 [Augmentin 1 tablet PO Q12H 5 Days #10 tablet 05/11/24 875/125 Tab] Doxycycline [Vibramycin] 100 mg PO BID 5 Days #10 tablet 05/11/24 Ondansetron Odt [Zofran Odt] 4 mg TL Q6H PRN #10 tablet 05/11/24 - Allergies Allergies/Adverse Reactions: Allergies Allergy/AdvReac Type Severity Reaction Status Date / Time amoxicillin Allergy Unknown Verified 05/11/24 17:35 - Social History Does the pt smoke?: Yes Smoking Status: Current every day smoker Does the pt drink ETOH?: Yes Does the pt have substance abuse?: No - Immunizations Immunizations are current?: Yes PD ED PE NORMAL - Vitals Vital signs reviewed: Yes - General General: Alert and oriented X 3, Well developed/nourished, Other (Ill-appearing) - HEENT HEENT: Atraumatic - Cardiac Cardiac: RRR, No murmur, No gallop - Respiratory Respiratory: No respiratory distress, Other (Bilateral wheezing) - Abdomen Abdomen: Soft - Back Back: No CVA TTP - Derm Derm: Normal color, Warm and dry, No rash - Extremities Extremities: No edema, No calf tenderness / cord - Psych Psych: Normal mood, Normal affect Results - Vitals Vitals: Vital Signs - 24 hr 05/11/24 05/11/24 05/11/24 17:28 19:45 20:10 Temperature 37.1 C 36.8 C Heart Rate 102 H 112 H 104 H Respiratory 17 24 14 Rate Blood Pressure 134/73 H 139/83 H O2 Saturation 95 98 05/11/24 05/11/24 20:27 23:00 Temperature 36.4 C L 36.2 C L Heart Rate 89 Respiratory 16 Rate Blood Pressure 133/84 H O2 Saturation 96 Oxygen O2 Source Room air - Labs Labs: Laboratory Tests 05/11/24 05/11/24 05/11/24 17:20 19:20 19:20 WBC 10.4 RBC 5.73 Hgb 16.1 Hct 48.5 MCV 84.6 MCH 28.1 MCHC 33.2 RDW 13.0 Plt Count 423 MPV 9.1 Neut # (Auto) 8.3 H Lymph # (Auto) 1.1 L [place] # (Auto) 0.8 Eos # (Auto) 0.2 Baso # (Auto) 0.0 Absolute Nucleated RBC 0.00 Nucleated RBC % 0.0 D-Dimer Sodium 133 L Potassium 4.2 Chloride 97 L Carbon Dioxide 29 Anion Gap 7.0 BUN 13 Creatinine 1.1 Estimated GFR (MDRD) 75 L Glucose 108 H Calcium 9.7 Magnesium 1.9 Total Bilirubin 0.7 AST 22 ALT 45 Alkaline Phosphatase 67 Total Protein 7.9 Albumin 4.3 Globulin 3.6 Albumin/Globulin Ratio 1.2 Lipase 41 Nasal Adenovirus (PCR) NOT DETECTED Nasal B. parapertussis DNA (PCR) NOT DETECTED Nasal Coronavir 229E PCR NOT DETECTED Nasal Coronavir HKU1 PCR NOT DETECTED Nasal Coronavir NL63 PCR NOT DETECTED Nasal Coronavir OC43 PCR NOT DETECTED Nasal Enterovir/Rhinovir PCR NOT DETECTED Nasal Influenza B PCR NOT DETECTED Nasal Influenza A PCR NOT DETECTED Nasal Parainfluen 1 PCR NOT DETECTED Nasal Parainfluen 2 PCR NOT DETECTED Nasal Parainfluen 3 PCR NOT DETECTED Nasal Parainfluen 4 PCR NOT DETECTED Nasal RSV (PCR) NOT DETECTED Nasal B.pertussis DNA PCR NOT DETECTED Nasal C.pneumoniae (PCR) NOT DETECTED [place] Human Metapneumo PCR NOT DETECTED Nasal M.pneumoniae (PCR) NOT DETECTED Nasal SARS-CoV-2 (PCR) NOT DETECTED 05/11/24 19:20 WBC RBC Hgb Hct MCV MCH MCHC RDW Plt Count MPV Neut # (Auto) Lymph # (Auto) [place] # (Auto) Eos # (Auto) Baso # (Auto) Absolute Nucleated RBC Nucleated RBC % D-Dimer 971.5 H Sodium Potassium Chloride Carbon Dioxide Anion Gap BUN Creatinine Estimated GFR (MDRD) Glucose Calcium Magnesium Total Bilirubin AST ALT Alkaline Phosphatase Total Protein Albumin Globulin Albumin/Globulin Ratio Lipase Nasal Adenovirus (PCR) Nasal B. parapertussis DNA (PCR) Nasal Coronavir 229E PCR Nasal Coronavir HKU1 PCR Nasal Coronavir NL63 PCR Nasal Coronavir OC43 PCR Nasal Enterovir/Rhinovir PCR Nasal Influenza B PCR Nasal Influenza A PCR Nasal Parainfluen 1 PCR Nasal Parainfluen 2 PCR Nasal Parainfluen 3 PCR Nasal Parainfluen 4 PCR Nasal RSV (PCR) Nasal B.pertussis DNA PCR Nasal C.pneumoniae (PCR) [place] Human Metapneumo PCR Nasal M.pneumoniae (PCR) Nasal SARS-CoV-2 (PCR) - Rads (name of study) 2 view chest x-ray Relevant Findings:: Final report received, EMP independent interpretation of test, Other (Right upper lobe infiltrate) CT chest angio Relevant Findings:: Final report received, EMP independent interpretation of test, Other (No pulmonary embolism) PD Medical Decision Making - ED course ED course: 39-year-old male presents emergency department with flulike symptoms worsening cough shortness of breath. Chest x-ray revealed that he did have right upper lobe pneumonia patient was quite ill-appearing and I went ahead and did a D- dimer because I could not rule out pulmonary embolism with PERC score. D-dimer came back quite elevated at 971.5. No leukocytosis or other electrolyte abnormalities respiratory swab was also negative. CT chest angio was complete and patient did not have a pulmonary embolism it did reveal pretty significant pneumonia to the right lung as well as numerous scattered pulmonary nodules. This is most likely infectious but radiology is recommending patient follow-up with CT scan in 3 months after resolution of pneumonia this was conveyed to the patient. Symptoms did drastically improved after receiving Zofran, doxycycline, Augmentin, steroids given his history of asthma, IV fluids, Tylenol and Zofran. Prescription of doxycycline and Augmentin was sent to patient's preferred pharmacy as well as albuterol inhaler for his pneumonia and Zofran for nausea. He was given very strict ER return precautions and told to follow-up with his primary care provider soon as possible outpatient. Departure - Departure Disposition: 01 Home, Self Care Clinical Impression: Community acquired pneumonia Instructions: Pneumonia Dc, ED Viral Syndrome Prescriptions: Albuterol Sulf [Ventolin Hfa Inhaler] 1 - 2 puffs INH Q4HR PRN #1 each PRN Reason: Wheezing Amox/Clav 875/125 [Augmentin 875/125 Tab] 1 tablet PO Q12H 5 Days #10 tablet Doxycycline [Vibramycin] 100 mg PO BID 5 Days #10 tablet Ondansetron Odt [Zofran Odt] 4 mg TL Q6H PRN #10 tablet PRN Reason: Nausea / Vomiting Comments: Thank you for trusting us with your care. You have pneumonia. We have started you on Augmentin and doxycycline please picker these antibiotics at [facility] in [place] first thing tomorrow morning and take them as prescribed. I have also sent a prescription for an albuterol inhaler to help with your ongoing wheezing I really do want you to continue to try to cough up the secretions that you are experiencing. I have also sent a prescription of Zofran and antinausea me dication to help with any sort of ongoing symptoms for your pneumonia. Please have a very low threshold to come back to the emergency department if you are having any worsening symptoms worsening shortness of breath chest pain or any other concerning emergent symptoms. Please follow-up with your primary care provider to also note today's ER visit. CT radiology read: IMPRESSION: No pulmonary embolus. Numerous scattered pulmonary nodules with surrounding groundglass opacities in a somewhat tree-in-bud distribution seen throughout the right hemithorax predominantly in the right upper lobe. These are favored to represent an infectious or inflammatory process although there is prominent right hilar adenopathy. Recommend clinical correlation. Short interval follow-up chest CT after treatment is recommended in 3 months to document stability versus resolution. Forms: PCP List
[2024-05-11 18:41] LABS: B. PARAPERTUSSIS- RESP PCR PAN NOT DETECTED; B. PERTUSSIS- RESP PCR PANEL NOT DETECTED; C. PNEUMONIAE- RESP PCR PANEL NOT DETECTED; CORONAVIRUS 229E-RESP PCR NOT DETECTED; CORONAVIRUS HKU1-RESP PCR NOT DETECTED; CORONAVIRUS NL63-RESP PCR NOT DETECTED; CORONAVIRUS OC43-RESP PCR NOT DETECTED; HUMAN METAPNEUMOVIRUS NOT DETECTED; INFLUENZA A- RESP PCR PANEL NOT DETECTED; INFLUENZA B - RESP PCR PANEL NOT DETECTED; M. PNEUMONIAE- RESP PCR PANEL NOT DETECTED; PARAINFLUENZA VIRUS 1 NOT DETECTED; PARAINFLUENZA VIRUS 2 NOT DETECTED; PARAINFLUENZA VIRUS 3 NOT DETECTED; PARAINFLUENZA VIRUS 4 NOT DETECTED; RHINOVIRUS/ENTEROVIRUS NOT DETECTED; RSV- RESP PCR PANEL NOT DETECTED; SARS-CoV-2 -RESP PCR PANEL NOT DETECTED
[2024-05-11 19:23] LABS: BASOPHILS % (AUTO) 0.2 %; EOSINOPHILS # (AUTO) 0.2 10^3/uL (0.0-0.7); HCT - HEMATOCRIT 48.5 % (42.0-52.0); HGB - HEMOGLOBIN 16.1 g/dL (14.0-18.0); LYMPHOCYTES # (AUTO) 1.1 10^3/uL (1.5-3.5); LYMPHOCYTES % (AUTO) 10.4 %; MEAN CORPUSCULAR HEMOGLOBIN 28.1 pg (27.0-31.0); MEAN CORPUSCULAR HGB CONC 33.2 g/dL (32.0-36.0); MEAN CORPUSCULAR VOLUME 84.6 fL (80.0-94.0); MEAN PLATELET VOLUME 9.1 fL (7.4-11.4); MONOCYTES # (AUTO) 0.8 10^3/uL (0.0-1.0); MONOCYTES % (AUTO) 7.6 %; NEUTROPHILS # (AUTO) 8.3 10^3/uL (1.5-6.6); NEUTROPHILS % (AUTO) 79.5 %; PLT - PLATELET COUNT 423 10^3/uL (130-450); RED BLOOD COUNT 5.73 10^6/uL (4.70-6.10); WHITE BLOOD COUNT 10.4 x10^3/uL (4.8-10.8)
[2024-05-11 19:45] LABS: ALBUMIN 4.3 g/dL (3.2-5.5); ALBUMIN/GLOBULIN RATIO 1.2 (1.0-2.2); BILIRUBIN,TOTAL 0.7 mg/dL (0.2-1.0); CALCIUM 9.7 mg/dL (8.5-10.3); CREATININE 1.1 mg/dL (0.6-1.3); MAGNESIUM 1.9 mg/dL (1.7-2.3); POTASSIUM 4.2 mmol/L (3.5-4.5); TOTAL PROTEIN 7.9 g/dL (6.4-8.9)
[2024-05-11] MEDS: IPRATROPIUM/ALBUTEROL 3 ML NEB INH STA (19:45)
[2024-05-11] MEDS: ACETAMINOPHEN 325 MG TABLET PO STA (19:57)
[2024-05-11] MEDS: SODIUM CHLORIDE 0.9% 1,000 ML IV ONE (19:57)
[2024-05-11] MEDS: AMOX/CLAV 875 MG/125 MG TABLET PO STA (19:58)
[2024-05-11] MEDS: methylPREDNISolone SUCCINATE 125 MG/2 ML VIAL IVP STA (19:58)
[2024-05-11] MEDS: ONDANSETRON 4 MG/2 ML VIAL IVP STA (19:58)
[2024-05-11] MEDS: DOXYCYCLINE 100 MG TABLET PO STA (19:58)
[2024-05-11] MEDS ORDERED: iohexoL-300 100 ML VIAL ONE (22:21)
[2024-05-11] MEDS: iohexoL-300 100 ML VIAL IVP ONE (22:43)
[2024-05-11 23:31] VITALS: O2SAT 96
--- NOTE | 2024-05-12 00:06 | CT Report ---
PROCEDURE: Angio Chest INDICATIONS: R/o PE CONTRAST: Omni 300, 80mls TECHNIQUE: After the administration of intravenous contrast, 2 mm axial images were acquired from the pulmonary apices to the posterior costophrenic angles during the arterial phase. In addition, 1 mm lung kernel and 5 mm soft tissue kernel reconstructions were performed. 3-dimensional coronal oblique maximum int ensity projection (MIP) reformats, 8 mm axial MIP, and 5 mm coronal and sagittal MPR reformats were t hen performed through the thorax. For radiation dose reduction, the following was used: automated exp osure control, adjustment of mA and/or kV according to patient size. COMPARISON: 08/26/2021. FINDINGS: Image quality: Diagnostic. Large vessels: No filling defects within the opacified pulmonary arteries, accounting for motion and contrast timing. No evidence of acute aortic syndrome or aortic aneurysm. Lungs and pleura: There are numerous scattered nodular densities with surrounding groundglass opaciti es, somewhat in a tree-in-bud distribution seen throughout the right upper lobe, medial right middle lobe, and right lower lobe. Mild perihilar airway thickening. No pleural effusions. No pneumothorax. Mediastinum: Heart size is normal. No pericardial effusion. No large vessel abnormality. There is pro minent right hilar adenopathy slightly more pronounced than expected for an infectious process. A few prominent mediastinal lymph nodes. These are likely reactive in etiology. Chest wall and lower neck: Thyroid is unremarkable. No axillary or supraclavicular adenopathy by size . Bones: No aggressive osseous abnormality. Upper Abdomen: Small hiatal hernia. Other upper abdominal structures are unremarkable. IMPRESSION: No pulmonary embolus. Numerous scattered pulmonary nodules with surrounding groundglass opacities in a somewhat tree-in-bud distribution seen throughout the right hemithorax predominantly in the right upper lobe. These are f avored to represent an infectious or inflammatory process although there is prominent right hilar kelly nopathy. Recommend clinical correlation. Short interval follow-up chest CT after treatment is recomme nded in 3 months to document stability versus resolution. Reviewed by: Vince Serra MD on 05/12/2024 12:05 AM PDT Approved by: Vince Serra MD on 05/12/2024 12:05 AM PDT Station ID: [id number]
[2024-05-12 00:24] VITALS: BP 133/68
== END 2024-05-12 00:21 | disposition home or self-care (01) ==
LOC: ED 17:27
DX: J18.9 Pneumonia, unspecified organism (principal); R91.8 Other nonspecific abnormal finding of lung field; F17.200 Nicotine dependence, unspecified, uncomplicated
CPT/HCPCS: 36415; 71046; 71275; 80053; 83690; 83735; 85025; 85379; 87633; 94640; 94664; 96374; 99284; A9270; Q9967

== ENCOUNTER 2024-05-15 10:43 | Emergency (ER) | payer MEDICAID ==
--- NOTE | 2024-05-15 11:52 | ED Physician Documentation ---
PD HPI ABD PAIN - Stated complaint Stated Complaint: LEFT SIDE PX - Chief complaint Chief Complaint: Abd Pain - History obtained from History obtained from: Patient - History of Present Illness Timing - onset: How many days ago (1-2) Timing - details: Abrupt onset, Still present (he has had cough and dyspnea for a week. Seen in ED and Rx albuterol MDI and antibiotics. States has soft stool/diarrhea. Also with new pleuritic pain left posterolateral lower ribs area.) Quality: Sharp, Pain Location: Other (left lower ribs/cartilage area posterolateral.) Radiation: Upper back Improved by: No: Eating Worsened by: Moving, Breathing, Palpation. No: Eating Associated symptoms: Diarrhea (since on antibiotics), Other (still with feeling of dyspnea with activity. Is using the albuterol just once daily or so as it makes him feel that less sputum comes up.). No: Fever, Nausea, Vomiting Recently seen: Emergency Dept Review of Systems Constitutional: reports: Myalgias. denies: Fever, Chills Nose: denies: Rhinorrhea / runny nose, Congestion Cardiac: reports: Chest pain / pressure (left side the past 1-2 days, i ncreasing.). denies: Palpitations Respiratory: reports: Dyspnea, Cough, Wheezing Neurologic: denies: Focal weakness, Numbness PD PAST MEDICAL HISTORY - Past Medical History Cardiovascular: None Respiratory: Asthma Neuro: None Endocrine/Autoimmune: None GI: GERD : None HEENT: None Psych: None Musculoskeletal: None Derm: None - Past Surgical History Past Surgical History: Yes Ortho: Other - Present Medications Home Medications: Ambulatory Orders Medication Instructions Recorded Confirmed Albuterol Sulf [Ventolin Hfa 1 - 2 puffs INH Q4HR PRN #1 each 05/11/24 Inhaler] Amox/Clav 875/125 [Augmentin 1 tablet PO Q12H 5 Days #10 tablet 05/11/24 875/125 Tab] Doxycycline [Vibramycin] 100 mg PO BID 5 Days #10 tablet 05/11/24 Ondansetron Odt [Zofran Odt] 4 mg TL Q6H PRN #10 tablet 05/11/24 HYDROcod/ACETAM 5/325 [[place] 5/325] 1 ea PO Q6H PRN #18 tablet 05/15/24 dexAMETHasone [Decadron] 4 mg PO DAILY #5 tablet 05/15/24 guaiFENesin [Mucinex] 600 mg PO TID #15 tablet 05/15/24 - Allergies Allergies/Adverse Reactions: Allergies Allergy/AdvReac Type Severity Reaction Status Date / Time No Known Drug Allergies Allergy Verified 05/15/24 10:52 - Social History Does the pt smoke?: Yes Smoking Status: Current every day smoker Does the pt drink ETOH?: Yes Does the pt have substance abuse?: No - Immunizations Immunizations are current?: Yes PD ED PE NORMAL - Vitals Vital signs reviewed: Yes - General General: Alert and oriented X 3, Well developed/nourished - Cardiac Cardiac: RRR, No murmur - Respiratory Respiratory: No respiratory distress, Other (left posterolateral chest/ribs with focal tenderness. No rash nor sores. ). No: Clear bilaterally (has insp and exp wheezing noted with somewhat prolnged expiratory phase. ) - Abdomen Abdomen: Soft, Non tender - Derm Derm: Normal color, Warm and dry - Extremities Extremities: No edema, No calf tenderness / cord - Neuro Neuro: Alert and oriented X 3, No motor deficit, Normal speech Results - Vitals Vitals: Oxygen O2 Source Room air - Rads (name of study) chest xray Relevant Findings:: Prelim report reviewed, EMP independent interpretation of test (no effusion nor PTX. the prior infiltrates is appearing improved. ) PD Medical Decision Making - ED course Complexity details: reviewed results (chest xray appearing improved re; pnemonic infiltrate. No PTX, effusion seen. ), re-evaluated patient (improved breathing with neb treatment here. Encouraged to use Albuterol MDI more often and can add decadron, pain med. ), considered differential (recent pneumonia with cough and now costcartilage pain and tenderness left side. infiltrate had been right. Can get xray to eval for PTX/effusion/new infiltrate. ), d/w patient Departure - Departure Disposition: 01 Home, Self Care Clinical Impression: Dyspnea, Pneumonia, Acute costochondritis Condition: Stable Record reviewed to determine appropriate education?: Yes Follow-Up: Natasha Mims ARNP [Primary Care Provider] - Prescriptions: dexAMETHasone [Decadron] 4 mg PO DAILY #5 tablet guaiFENesin [Mucinex] 600 mg PO TID #15 tablet HYDROcod/ACETAM 5/325 [[place] 5/325] 1 ea PO Q6H PRN #18 tablet PRN Reason: Pain Comments: Your chest x-ray is looking improved compared to the x-ray and CT of the other day. Your pneumonia does seem to be clearing. I would finish out your current antibiotics. You do have a lot of wheezing and even though may feel like it is hindering your sputum production, I would still suggest the albuterol inhaler 2 to 3 puffs 4 times daily for the next several days to week. To help with expectoration, you could add guaifenesin 3 times daily to help thin out some of the sputum and bring it up. For inflammation of the airways as evidenced by your wheezing, we could also add dexamethasone anti-inflammatory daily to help with your breathing. Your chest x-ray did not show any signs of fluid or lung abnormality on the lower left. I presume some inflammation of the muscle and cartilage in that area. The inhaler and dexamethasone should help with that and to that add Tylenol every 4-6 hours by also prescribed hydrocodone to use every 4-6 hours if needed for worse pain. We did not give you any here because you were driving home but I did send it to the [facility] in [place] and hopefully will be filled soon as you are able to pick it up going that way. Forms: PCP List Discharge Date/Time: 05/15/24 14:16
[2024-05-15] MEDS: ACETAMINOPHEN 500 MG TABLET PO STA (12:31)
[2024-05-15] MEDS: KETOROLAC 30 MG/ML VIAL IM STA (12:33)
[2024-05-15] MEDS: LIDOCAINE PATCH 5% TOP STA (12:36)
[2024-05-15] MEDS: IPRATROPIUM/ALBUTEROL 3 ML NEB INH STA (13:17)
--- NOTE | 2024-05-15 13:21 | XRAY Report ---
PROCEDURE: Chest 1V INDICATIONS: chest pain left side, recent pneumonia TECHNIQUE: One view of the chest was acquired. COMPARISON: Chest radiograph 05/11/2024., CT chest angiogram 05/11/2024 FINDINGS: Surgical changes and devices: None. Lungs and pleura: No pleural effusions or pneumothorax. Redemonstration of reticulonodular opacities in the right upper and mid lung zone, which is slightly decreased compared to prior radiograph. Mediastinum: Mediastinal contours appear normal. Heart size is normal. Bones and chest wall: No suspicious bony lesions. Overlying soft tissues appear unremarkable. IMPRESSION: Compared to prior radiograph on 05/11/2024, slightly decreased opacities in the right upper and mid layton ng zone, better evaluated on recent CT chest angiogram 05/09/2024. Left lung is clear. Reviewed by: Shahnaz Love MD, PhD on 05/15/2024 12:20 PM DAVID Approved by: Shahnaz Love MD, PhD on 05/15/2024 12:20 PM DAVID Station ID: [id number]
[2024-05-15 14:13] VITALS: BP 122/74; O2SAT 100
== END 2024-05-15 14:16 | disposition home or self-care (01) ==
LOC: ED 10:43
DX: J18.9 Pneumonia, unspecified organism (principal); M94.0 Chondrocostal junction syndrome [Tietze]; F17.200 Nicotine dependence, unspecified, uncomplicated; J45.909 Unspecified asthma, uncomplicated
CPT/HCPCS: 71045; 94640; 96372; 99284; A9270

== ENCOUNTER 2024-07-14 07:55 | Outpatient (CLI) | payer MEDICAID ==
[2024-07-14] MEDS: ALBUTEROL 1 PUFF INH STA (10:29)
== END 2024-07-14 07:56 | disposition home or self-care (01) ==
LOC: RT 07:55
PROVIDERS: ATTEND Registered Nurse
DX: R06.09 Other forms of dyspnea (principal)
CPT/HCPCS: 94060; 94727; 94729

== ENCOUNTER 2024-07-14 09:29 | Outpatient (CLI) | payer MEDICAID | END 2024-07-14 09:30 | disposition home or self-care (01) | LOC: LAB 09:29 | PROVIDERS: ATTEND Registered Nurse | DX: E29.1 Testicular hypofunction (principal) | CPT/HCPCS: 36415; 84403 ==